=== PATIENT | male | born 2000 | race Caucasian/White ===

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

== ENCOUNTER 2022-05-28 13:00 | Emergency (ER) | payer BC ==
[~2022-05-28 13:00] MED LIST: Iopamidol 370 76% 100 ML VIAL ONE
[2022-05-28 14:17] LABS: #Eosinphils 0.1 10x3/uL (0.0-0.5); #Monocytes 0.9 10x3/uL (0.0-1.1); #Neutrophils 8.4 10x3/uL (1.5-8.4); %Basophils 0.3 % (0.0-2.0); %Eosinophils 0.7 % (0.0-6.0); %Lymphocytes 8.1 % (18.0-47.0); %Monocytes 9.1 % (0.0-10.0); %Neutrophils 81.5 % (40.0-75.0); Hemoglobin 14.5 g/dL (13.5-17.5); Mean Corpuscular HGB CONC 35.2 g/dL (32.0-36.0); Mean Corpuscular Hemoglobin 30.1 pg (27.0-33.0); Mean Corpuscular Volume 85.5 fl (81.2-95.1); Mean Platelet Volume 9.6 fl (7.4-10.4); Platelet Count 216 10x3/uL (150-450); RBC Distribution Width 12.1 % (11.5-14.5); Red Blood Cell (RBC) Count 4.82 10x6/uL (4.32-5.72); White Blood Cell (WBC) Count 10.3 10x3/uL (3.5-10.5)
[2022-05-28 14:34] LABS: ALT (SGPT) 16 U/L (8-55); AST (SGOT) 20 U/L (5-34); Albumin 4.3 g/dL (3.5-5.0); Alkaline Phosphatase 67 U/L (50-130); Anion Gap 14 mmol/L (10-20); BUN (Urea Nitrogen) 10 mg/dL (8.9-20.6); Bilirubin, Total 0.9 mg/dL (0.2-1.2); Calc. Creatinine Clearance 0 mL/min (70-130); Calcium 9.4 mg/dL (7.8-10.44); Carbon Dioxide 26 mmol/L (22-29); Chloride 101 mmol/L (98-107); Estimated GFR 111; Globulin 3.4 g/dL (2.4-3.5); Glucose 94 mg/dL (70-105); Lipase 22 U/L (8-78); Potassium 4.1 mmol/L (3.5-5.1); Protein, Total 7.7 g/dL (6.0-8.3); Sodium 137 mmol/L (136-145)
[2022-05-28] MEDS ORDERED: Ondansetron PF 4 MG/2 ML Vial ONE (15:32)
== END 2022-05-28 17:22 | disposition home or self-care (01) ==
LOC: CSHERS 13:00
DX: J18.9 Pneumonia, unspecified organism (principal)
CPT/HCPCS: 36415; 71045; 71275; 80053; 83690; 83880; 85025; 96374; J2405; Q9967

== ENCOUNTER 2023-05-17 18:50 | Emergency (ER) | payer BC ==
[2023-05-17] MEDS ORDERED: Lidocaine 1% PF 5 ML VIAL ONE (19:31)
[2023-05-17] MEDS ORDERED: Boostrix 0.5 ML (Tdap) VIAL (>/=7 yrs of age) ONE (19:39)
== END 2023-05-17 20:16 | disposition home or self-care (01) ==
LOC: CSHERS 18:50
DX: S61.412A Laceration without foreign body of left hand, initial encounter (principal); W26.8XXA Contact with other sharp object(s), not elsewhere classified, initial encounter
CPT/HCPCS: 12002; 90471; 90715